=== PATIENT | male | born 1970 ===

== ENCOUNTER 2017-01-20 10:29 | Inpatient (IN) | payer BC ==
[2017-01-20] MEDS ORDERED: NITROGLYCERIN OINT 1 INCH/GM PACKET TOPICAL STA (10:46)
[2017-01-20] MEDS ORDERED: ASPIRIN 81 MG CHEW PO STA (10:46)
[2017-01-20 10:58] LABS: Basophils % (A) 1 %; CH 31.2; CHCM 35.7; Eosinophils # (A) 0.2 k/uL (0-0.7); Eosinophils % (A) 4 %; HCT 40.6 % (39.0-53.0); HDW 2.45; HGB 14.6 gm/dL (13.0-17.5); Luc # (Auto) 0.12; Luc % (Auto) 3; Lymphocytes # (A) 1.6 k/uL (1.0-4.8); Lymphocytes % (A) 36 %; MCH 31.6 pg (25.0-35.0); MCV 87.7 fL (80.0-100.0); Mean Platelet Volume 7.9; Monocytes # (A) 0.4 k/uL (0-1.0); Monocytes % (A) 8 %; Neutrophils # (A) 2.2 k/uL (1.3-7.7); Neutrophils % (A) 48 %; RBC 4.63 m/uL (4.30-5.90); RDW 12.6 % (11.5-15.5); WBC 4.5 k/uL (3.8-10.6)
[2017-01-20 11:06] LABS: ALT 52 U/L (21-72); AST 32 U/L (17-59); Alkaline Phosphatase 62 U/L (38-126); Anion Gap 12 mmol/L; Blood Urea Nitrogen 16 mg/dL (9-20); Calcium 10.1 mg/dL (8.4-10.2); Carbon Dioxide 26 mmol/L (22-30); Chloride 104 mmol/L (98-107); Glucose 148 mg/dL (74-99); Magnesium 1.7 mg/dL (1.6-2.3); Non-African American GFR(MDRD) >60 (>60 ml/min/1.73 sqM); Partial Thromboplastin Time 22.3 sec (22.0-30.0); Potassium 4.5 mmol/L (3.5-5.1); Prothrombin Time 10.2 sec (9.0-12.0); Sodium 142 mmol/L (137-145); Total Bilirubin 0.7 mg/dL (0.2-1.3); Total Protein 7.2 g/dL (6.3-8.2)
--- NOTE | 2017-01-20 11:07 | ED ---
General Adult HPI - General Chief complaint: Chest Pain Stated complaint: chest pain Time Seen by Provider: 01/20/17 10:35 Source: patient, RN notes reviewed Mode of arrival: wheelchair Limitations: no limitations - History of Present Illness Initial comments: This is a 46-year-old male who presents emergency department with past medical history significant for coronary artery disease and 4 stent placements. Patient comes in today because his been having chest pain intermittently for the last 2 weeks. Patient states the pain is a achiness in the center of his chest radiates to his right shoulder. Patient states he also is having some shortness of breath and diaphoresis with these episodes. Patient states his last episode was last evening. His finally made him come to the hospital today even though his chest pain-free today. Patient denies any recent fever chills or cough. Patient denies abdominal pain patient denies nausea vomiting diarrhea. Patient denies any headache patient denies numbness weakness. Patient denies lightheadedness dizziness or near syncopal episode. - Related Data Home Medications Medication Instructions Recorded Confirmed Clopidogrel Bisulfate [Clopidogrel] 75 mg PO DAILY 11/30/15 01/20/17 Losartan Potassium 100 mg PO DAILY 11/30/15 01/20/17 Metoprolol Tartrate [Metoprolol 25 mg PO HS 11/30/15 01/20/17 Tartrate] Aspirin 81 mg PO DAILY 01/20/17 01/20/17 Rosuvastatin Calcium [Rosuvastatin 10 mg PO HS 01/20/17 01/20/17 Calcium] Allergies Allergy/AdvReac Type Severity Reaction Status Date / Time No Known Allergies Allergy Verified 01/20/17 10:34 Review of Systems ROS Statement: Those systems with pertinent positive or pertinent negative responses have been documented in the HPI. ROS Other: All systems not noted in ROS Statement are negative. Past Medical History Past Medical History: Coronary Artery Disease (CAD), Hypertension, Myocardial Infarction ([place]), Syncope Last Myocardial Infarction Date:: 03/08/13 History of Any Multi-Drug Resistant Organisms: None Reported Past Surgical History: Heart Catheterization With Stent Additional Past Surgical History / Comment(s): PCI with 4 stents. Past Anesthesia/Blood Transfusion Reactions: Unable to Obtain Additional Past Anesthesia/Blood Transfusion Reaction / Comment(s): Pt has never had general anesthesia Date of Last Stent Placement:: 03/08/13 Past Psychological History: No Psychological Hx Reported Smoking Status: Never smoker Past Alcohol Use History: Occasional Past Drug Use History: None Reported - Past Family History Father Family Medical History: Cancer Additional Family Medical History / Comment(s): Father of pancreatic cancer at the age of 62 yrs. Mother Family Medical History: Coronary Artery Disease (CAD), Hypertension Additional Family Medical History / Comment(s): Mother has cardiac stents. She is 73 yrs old. General Exam - General Exam Comments Initial Comments: GENERAL: Patient is well-developed and well-nourished. Patient is nontoxic and well- hydrated and is in no acute distress. ENT: Neck is soft and supple. No significant lymphadenopathy is noted. Oropharynx is clear. Moist mucous membranes. Neck has full range of motion without eliciting any pain. EYES: The sclera were anicteric and conjunctiva were pink and moist. Extraocular movements were intact and pupils were equal round and reactive to light. Eyelids were unremarkable. PULMONARY: Unlabored respirations. Good breath sounds bilaterally. No audible rales rhonchi or wheezing was noted. CARDIOVASCULAR: There is a regular rate and rhythm without any murmurs gallops or rubs. ABDOMEN: Soft and nontender with normal bowel sounds. No palpable organomegaly was noted. There is no palpable pulsatile mass. SKIN: Skin is clear with no lesions or rashes and otherwise unremarkable. NEUROLOGIC: Patient is alert and oriented x3. Cranial nerves II through XII are grossly intact. Motor and sensory are also intact. Normal speech, volume and content. Symmetrical smile. MUSCULOSKELETAL: Normal extremities with adequate strength and full range of motion. LYMPHATICS: No significant lymphadenopathy is noted PSYCHIATRIC: Normal psychiatric evaluation. Normal interpersonal interactions appears functionally intact in deals appropriately with others. Limitations: no limitations Course Vital Signs 01/20/17 10:31 Temperature 97 F L Pulse Rate 57 L Respiratory 20 Rate Blood Pressure 176/101 O2 Sat by Pulse 99 Oximetry Medical Decision Making - Medical Decision Making EKG shows sinus bradycardia 55 bpm HI interval is on a 34 QRS is 92 QT interval 4:30 QTC is 411. Patient's EKG shows no ST segment elevation or depression or T wave abnormalities are noted. Patient's troponin came back elevated and without EKG changes a couple patient and non-STEMI. I spoke with Dr. Jeong he agreed to keep the patient and admit the patient. I wrote admitting orders I consult cardiology. Call cardiology Dr. Vo answered he agreed with the current treatment he wanted echo done in the ER. Patient will also be seen by him in the emergency department. - Lab Data Result diagrams: 01/20/17 10:48 01/20/17 10:48 Lab Results 01/20/17 01/20/17 01/20/17 Range/Units 10:48 10:48 10:48 WBC 4.5 (3.8-10.6) k/uL RBC 4.63 (4.30-5.90) m/uL Hgb 14.6 (13.0-17.5) gm/dL Hct 40.6 (39.0-53.0) % MCV 87.7 (80.0-100.0) fL MCH 31.6 (25.0-35.0) pg MCHC 36.0 (31.0-37.0) g/dL RDW 12.6 (11.5-15.5) % Plt Count 177 (150-450) k/uL Neutrophils % 48 % Lymphocytes % 36 % Monocytes % 8 % Eosinophils % 4 % Basophils % 1 % Neutrophils # 2.2 (1.3-7.7) k/uL Lymphocytes # 1.6 (1.0-4.8) k/uL Monocytes # 0.4 (0-1.0) k/uL Eosinophils # 0.2 (0-0.7) k/uL Basophils # 0.0 (0-0.2) k/uL PT (9.0-12.0) sec INR (<1.1) APTT (22.0-30.0) sec Sodium 142 (137-145) mmol/L Potassium 4.5 (3.5-5.1) mmol/L Chloride 104 (98-107) mmol/L Carbon Dioxide 26 (22-30) mmol/L Anion Gap 12 mmol/L BUN 16 (9-20) mg/dL Creatinine 0.90 (0.66-1.25) mg/dL Est GFR (MDRD) Af Amer >60 (>60 ml/min/1.73 sqM) Est GFR (MDRD) Non-Af >60 (>60 ml/min/1.73 sqM) Glucose 148 H (74-99) mg/dL Calcium 10.1 (8.4-10.2) mg/dL Magnesium 1.7 (1.6-2.3) mg/dL Total Bilirubin 0.7 (0.2-1.3) mg/dL AST 32 (17-59) U/L ALT 52 (21-72) U/L Alkaline Phosphatase 62 (38-126) U/L Total Creatine Kinase 65 (55-170) U/L CK-MB (CK-2) 1.0 (0.0-2.4) ng/mL CK-MB (CK-2) Rel Index 1.5 Troponin I 0.137 H* (0.000-0.034) ng/mL Total Protein 7.2 (6.3-8.2) g/dL Albumin 4.6 (3.5-5.0) g/dL 01/20/17 Range/Units 10:48 WBC (3.8-10.6) k/uL RBC (4.30-5.90) m/uL Hgb (13.0-17.5) gm/dL Hct (39.0-53.0) % MCV (80.0-100.0) fL MCH (25.0-35.0) pg MCHC (31.0-37.0) g/dL RDW (11.5-15.5) % Plt Count (150-450) k/uL Neutrophils % % Lymphocytes % % Monocytes % % Eosinophils % % Basophils % % Neutrophils # (1.3-7.7) k/uL Lymphocytes # (1.0-4.8) k/uL Monocytes # (0-1.0) k/uL Eosinophils # (0-0.7) k/uL Basophils # (0-0.2) k/uL PT 10.2 (9.0-12.0) sec INR 1.0 (<1.1) APTT 22.3 (22.0-30.0) sec Sodium (137-145) mmol/L Potassium (3.5-5.1) mmol/L Chloride (98-107) mmol/L Carbon Dioxide (22-30) mmol/L Anion Gap mmol/L BUN (9-20) mg/dL Creatinine (0.66-1.25) mg/dL Est GFR (MDRD) Af Amer (>60 ml/min/1.73 sqM) Est GFR (MDRD) Non-Af (>60 ml/min/1.73 sqM) Glucose (74-99) mg/dL Calcium (8.4-10.2) mg/dL Magnesium (1.6-2.3) mg/dL Total Bilirubin (0.2-1.3) mg/dL AST (17-59) U/L ALT (21-72) U/L Alkaline Phosphatase (38-126) U/L Total Creatine Kinase (55-170) U/L CK-MB (CK-2) (0.0-2.4) ng/mL CK-MB (CK-2) Rel Index Troponin I (0.000-0.034) ng/mL Total Protein (6.3-8.2) g/dL Albumin (3.5-5.0) g/dL Critical Care Time Critical Care Time: Yes Total Critical Care Time: 35 Disposition Clinical Impression: Non-STEMI (non-ST elevated myocardial infarction) Disposition: ADMITTED IP TO THIS HOSP Referrals: None,Stated [Primary Care Provider] - 1-2 days Time of Disposition: 12:07
--- NOTE | 2017-01-20 11:17 | XR ---
EXAMINATION TYPE: XR chest 2V DATE OF EXAM: 01/20/2017 HISTORY: Chest Pain. REFERENCE: Previous study dated 11/30/2015. FINDINGS: The lungs are clear. Pleural spaces are clear. The heart is not enlarged. IMPRESSION: NORMAL CHEST.
[2017-01-20 11:40] LABS: Troponin I 0.137 ng/mL (0.000-0.034)
[2017-01-20] MEDS ORDERED: HEPARIN SODIUM,PORCINE 5,000 UNIT/ML 1 ML VIAL IV ONE (11:54)
[2017-01-20] MEDS ORDERED: HEPARIN SODIUM,PORCINE/D5W PMX 25,000 UNIT in DEXTROSE/WATER 1 500ML.BAG IV SCH (12:00)
[2017-01-20] MEDS ORDERED: NITROGLYCERIN SL TABS 0.4 MG TAB SUBLINGUAL PRN ×3 (12:09→18:06)
[2017-01-20] MEDS ORDERED: ASPIRIN 325 MG TAB PO STA (13:02)
[2017-01-20] MEDS ORDERED: SODIUM CHLORIDE 0.9% 1,000 ML in EMPTY BAG 1 BAG IV ONE (13:02)
[2017-01-20] MEDS ORDERED: ALPRAZolam 0.25 MG TAB PO PRN (13:02)
[2017-01-20] MEDS ORDERED: ATORVASTATIN 80 MG TAB PO STA (13:02)
[2017-01-20] MEDS ORDERED: ALPRAZolam 0.5 MG TAB PO PRN (13:02)
[2017-01-20] MEDS ORDERED: SODIUM CHLORIDE 0.9% 1,000 ML IV ONE ×2 (14:06→16:54)
[2017-01-20] MEDS ORDERED: fentaNYL (PF) 50 MCG/ML 2 ML AMP IVP ONE (14:12)
[2017-01-20] MEDS ORDERED: MIDAZOLAM 2 MG/2 ML VIAL IVP ONE ×2 (14:12→16:54)
[2017-01-20] MEDS ORDERED: CLOPIDOGREL 75 MG TAB PO ONE (14:50)
[2017-01-20] MEDS ORDERED: IOHEXOL 350 MG/ML 100 ML BOTTLE INJ ONE ×2 (14:51→18:00)
[2017-01-20] MEDS ORDERED: amLODIPine 5 MG TAB ONE (15:06)
[2017-01-20] MEDS ORDERED: MIDAZOLAM 2 MG/2 ML VIAL ONE (16:49)
[2017-01-20] MEDS ORDERED: LIDOCAINE 2% INJ 20 MG/ML (20 ML MDV) ONE (17:13)
--- NOTE | 2017-01-20 17:21 | ECHOF ---
Referral Reason:Chest pain MEASUREMENTS -------- HEIGHT: 170.2 cm WEIGHT: 81.7 kg BP: 150/91 RVIDd: 2.8 cm (< 3.3) IVSd: 1.1 cm (0.6 - 1.1) LVIDd: 5.1 cm (3.9 - 5.3) LVPWd: 1.1 cm (0.6 - 1.1) IVSs: 1.7 cm LVIDs: 2.9 cm LVPWs: 1.6 cm LAESV Index (A-L): 16.21 ml/m Ao Diam: 3.1 cm (2.0 - 3.7) AV Cusp: 1.7 cm (1.5 - 2.6) LA Diam: 2.5 cm (2.7 - 3.8) MV EXCURSION: 18.395 mm (> 18.000) MV EF SLOPE: 72 mm/s (70 - 150) EPSS: 1.2 cm MV E Alphonso: 0.80 m/s MV DecT: 243 ms MV A Alphonso: 0.80 m/s MV E/A Ratio: 0.99 RAP: 5.00 mmHg RVSP: 9.35 mmHg FINDINGS -------- Sinus rhythm. This was a technically adequate study. There is borderline concentric left ventricular hypertrophy. Overall left ventricular systolic function is mild-moderately impaired with, an EF between 40 - 45 %. The right ventricle is normal in size and function. Normal LA size by volume 22+/-6 ml/m2. The right atrium is normal in size. Aortic valve is trileaflet and is mildly thickened. The mitral valve leaflets are mildly thickened. There is trace mitral regurgitation. Trace tricuspid regurgitation present. There is no evidence of pulmonary hypertension. The right ventricular systolic pressure, as measured by Doppler, is 9.35mmHg. The pulmonic valve was not well visualized. The aortic root size is normal. Normal inferior vena cava with normal inspiratory collapse consistent with estimated right atrial pressure of 5 mmHg. The pericardium is normal. There is no pericardial effusion. CONCLUSIONS -------- 1. Sinus rhythm. 2. There is no evidence of pulmonary hypertension. 3. The right ventricular systolic pressure, as measured by Doppler, is 9.35mmHg. 4. The pulmonic valve was not well visualized. 5. The aortic root size is normal. 6. There is no pericardial effusion. 7. This was a technically adequate study. 8. There is borderline concentric left ventricular hypertrophy. 9. Overall left ventricular systolic function is mild-moderately impaired with, an EF between 40 - 45 %. 10. Normal LA size by volume 22+/-6 ml/m2. 11. Aortic valve is trileaflet and is mildly thickened. 12. The mitral valve leaflets are mildly thickened. 13. There is trace mitral regurgitation. 14. Trace tricuspid regurgitation present. NEON LIGHT INSTALLER: Morris Gonzalez RDCS
[2017-01-20] MEDS ORDERED: BIVALIRUDIN BOLUS 250 MG/50 ML IV ONE (17:30)
[2017-01-20] MEDS ORDERED: LIDOCAINE 2% INJ 20 MG/ML SQ ONE (17:31)
[2017-01-20] MEDS ORDERED: BIVALIRUDIN 250 MG in SODIUM CHLORIDE 0.9% 50 ML IV ONE (17:32)
[2017-01-20 17:35] LABS: Creatine Kinase MB 0.8 ng/mL (0.0-2.4)
[2017-01-20] MEDS: NITROGLYCERIN 1000MCG/10ML SYRINGE INTRACORON ONE ×2 (17:38→17:52)
[2017-01-20 17:39] LABS: Troponin I 0.139 ng/mL (0.000-0.034)
[2017-01-20] MEDS ORDERED: niCARdipine Syringe (1,000 mcg/10 mL) INTRACORON ONE (17:55)
[2017-01-20] MEDS ORDERED: ATROPINE SULFATE 0.1 MG/ML 10ML SYRINGE IV PRN (18:06)
[2017-01-20] MEDS ORDERED: HYDROmorphone 2 MG/ML 1 ML SYRINGE ONE (18:06)
[2017-01-20] MEDS ORDERED: RX INFO: IV CONTRAST WAS GIVEN 1 EACH MISC MISCELLANE PRN (18:06)
[2017-01-20] MEDS ORDERED: MAG HYDROX/AL HYDROX/SIMETH 30 ML CUP PO PRN (18:06)
[2017-01-20] MEDS ORDERED: HYDROmorphone 2 MG/ML 1 ML SYRINGE IV ONE (18:07)
[2017-01-20] MEDS ORDERED: SODIUM CHLORIDE 0.9% 1,000 ML IV SCH (18:15)
[2017-01-20] MEDS: NITROGLYCERIN OINT 1 INCH/GM PACKET TOPICAL SCH ×2 (19:03→23:33)
[2017-01-20] MEDS ORDERED: HYDROmorphone 1 MG/ML 1 ML SYRINGE IVP STA (20:38)
[2017-01-20] MEDS ORDERED: HYDROcodone/APAP 5-325MG 1 EACH TAB PO PRN (20:39)
[2017-01-20] MEDS ORDERED: ZOLPIDEM 5 MG TAB PO PRN (21:00)
[2017-01-20] MEDS: METOPROLOL TARTRATE 25 MG TAB PO SCH (21:37)
[2017-01-20 22:56] LABS: Troponin I 0.174 ng/mL (0.000-0.034)
[2017-01-21] MEDS: NITROGLYCERIN OINT 1 INCH/GM PACKET TOPICAL SCH ×3 (06:29→16:01)
[2017-01-21 06:38] LABS: Basophils % (A) 0 %; CH 30.4; CHCM 34.6; Eosinophils # (A) 0.1 k/uL (0-0.7); Eosinophils % (A) 2 %; HCT 35.2 % (39.0-53.0); HDW 2.46; HGB 12.4 gm/dL (13.0-17.5); Luc # (Auto) 0.12; Luc % (Auto) 3; Lymphocytes # (A) 1.1 k/uL (1.0-4.8); Lymphocytes % (A) 24 %; MCHC 35.1 g/dL (31.0-37.0); MCV 88.2 fL (80.0-100.0); Mean Platelet Volume 8.1; Monocytes # (A) 0.3 k/uL (0-1.0); Monocytes % (A) 7 %; Neutrophils # (A) 3.1 k/uL (1.3-7.7); Neutrophils % (A) 65 %; RBC 3.99 m/uL (4.30-5.90); RDW 12.2 % (11.5-15.5); WBC 4.7 k/uL (3.8-10.6); WBC (Perox) 4.96
[2017-01-21 06:47] LABS: Anion Gap 8 mmol/L; Blood Urea Nitrogen 12 mg/dL (9-20); Calcium 8.5 mg/dL (8.4-10.2); Carbon Dioxide 26 mmol/L (22-30); Chloride 104 mmol/L (98-107); Cholesterol 151 mg/dL (<200); Glucose 145 mg/dL (74-99); HDL Cholesterol 41 mg/dL (40-60); Non-African American GFR(MDRD) >60 (>60 ml/min/1.73 sqM); Potassium 3.9 mmol/L (3.5-5.1); Sodium 138 mmol/L (137-145); Triglycerides 120 mg/dL (<150)
[2017-01-21] MEDS: CLOPIDOGREL 75 MG TAB PO SCH (08:13)
[2017-01-21] MEDS: ASPIRIN 325 MG TAB PO SCH (08:13)
[2017-01-21] MEDS: LOSARTAN 50 MG TAB PO SCH (08:14)
[2017-01-21] MEDS ORDERED: ASPIRIN 81 MG CHEW PO SCH (09:00)
[2017-01-21] MEDS: EZETIMIBE 10 MG TAB PO SCH (09:53)
--- NOTE | 2017-01-21 09:58 | CONS ---
Mr. Barnes is a 46-year-old gentleman who is seen for cardiac evaluation in the emergency room. This patient has a known history of coronary artery disease with a prior history of stent to the LAD and the right coronary artery. The patient had been doing fairly well since then. For the last 2 days, he has been having intermittent chest pain with minimal activities. Last night he had chest discomfort at rest. The pain was in the substernal area associated with diaphoresis. No significant shortness of breath. Because of the persistent pain, the patient came to the emergency room this morning. The patient's initial troponin is 0.137. The patient has a past history of stent to the LAD and right coronary artery. The patient has a history of hyperlipidemia. Past medical history includes a previous history of stent. Patient was admitted with syncope in November of 2015. Patient's home medications include metoprolol, Plavix, aspirin. Physical examination at present reveals a 46-year-old gentleman who does not appear to be in any acute distress. Blood pressure is 130/80 mmHg. Head, ENT examination is negative. Neck is supple. There is no increase in jugular venous pressure. Both the carotid pulses are felt. There is no bruit. Chest is symmetrical. HEART: The PMI is not felt. First and second heart sounds are normal. There is no evidence of any murmur. Lungs are clinically clear to auscultation and percussion. Abdomen is soft. Liver and spleen are not enlargement. Bowel sounds are heard. EXTREMITIES: Peripheral pulsations are 2+. EKG shows normal sinus rhythm with T wave inversions in lead III. Initial troponin is 0.137. Patient's echocardiogram reveals mid and basal inferior wall and inferoseptal hypokinesia. FINAL IMPRESSION: This patient has come with chest pain. The patient's initial troponin is elevated suggestive of a non-Q wave myocardial infarction. Echocardiogram reveals inferoseptal hypokinesia. I am not exactly sure whether this is old or new. In view of the history suggestive of a non-ST segment elevation myocardial infarction. The patient is advised further evaluation with a cardiac catheterization to rule out any significant progression in the coronary artery disease. MIKE
--- NOTE | 2017-01-21 10:08 | CC ---
Mr. Barnes is a 46-year-old gentleman who came with symptoms of chest pain and ucy-ZS-ojxgyga elevation myocardial infarction. The patient has a prior history of stent to the RCA as well as subtotally occluded LAD. Because of the non-ST segment elevation myocardial infarction, the patient was recommended to have a cardiac catheterization for definitive diagnosis. PROCEDURE: The right groin was prepped and draped in the usual manner and the skin was infiltrated with 2% Xylocaine. The right femoral artery was entered using Seldinger technique and #6 [place] sheath was placed in . Selective coronary angiography was then performed in multiple projections and left ventricular pressures were obtained. The patient tolerated the procedure well. HEMODYNAMICS: Left ventricular end-diastolic pressure is 16 to 20 mmHg prior to angiography. No gradient is noted across the aortic valve. SELECTIVE CORONARY ANGIOGRAPHY: Left main coronary artery is normal and patent. The LAD is a good caliber blood vessel and there is patent stent. The mid LAD right at the origin of the diagonal branch has about 60% stenosis. Circumflex coronary artery is a good caliber blood vessel and gives rise to the obtuse marginal branch. The obtuse marginal branch has about 70% stenosis before its bifurcation into 2 subdivisions. Right coronary artery is a good caliber blood vessel and distal right coronary artery before its bifurcation into the PDA and PLV branch has 90% stenosis. PDA branch has 50% stenosis. RECOMMENDATIONS: The films were reviewed with Dr. Nguyen .We will consider stent to the RCA and possible FFR of the LAD and also evaluate the obtuse marginal branch. [facility]
--- NOTE | 2017-01-21 11:46 | PTCA ---
PERCUTANEOUS CORONARY INTERVENTION DATE OF SERVICE: 01/20/2017 PERFORMING PHYSICIAN: Med Nguyen MD, pulp grinder and blender. PROCEDURE PERFORMED: Successful stenting of the distal right coronary artery using 2.75 x 15 mm Xience JERMAINE with a good angiographic result. INDICATIONS: This is a pleasant 46-year-old gentleman who sees Dr. Caroline Weeks as an outpatient who presented to the hospital with chest discomfort and was diagnosed with unstable angina. He was seen by Dr. Edy Vo who did a heart catheterization on this gentleman and that showed severe de onofre coronary artery disease involving the distal right coronary artery just proximal to prior stent in the RCA. The decision was made toward percutaneous coronary intervention. Dr. Caroline Weeks was out of town. APPROACH: Right common femoral artery. COMPLICATIONS: None. LEVEL OF SEDATION: Moderate with sedation length of 30 minutes. PROCEDURE DESCRIPTION: After diagnostic heart catheterization was performed by Dr. Edy Vo and after reviewing the angiogram, we decided to pursue with an intervention on the RCA. Anticoagulation was initiated using Angio-Max. Subsequently, I took JR4 guide and RCA was engaged. A whisper wire was used to wire the right coronary artery. Subsequently, I did PTCA ballooning using 2.5 x 12 mm balloon which was inflated under 12 atmospheres for 20 seconds after it was positioned under fluoroscopy guidance. Subsequently, I did deploy 2.75 x 15 mm Xience DEC where the stent was positioned under fluoroscopy guidance and deployed under 16 atmospheres for 20 seconds. I was unable to get the stent ( ) whisper wire so I have to sophia wire the right coronary artery using a run-through wire. The procedure was completed without any complication. POSTPROCEDURE MANAGEMENT: 1. Dual antiplatelet therapy. 2. Risk factor modification. 3. Follow up with the patient. MIKE
--- NOTE | 2017-01-21 13:57 | P.PN ---
Subjective Principal diagnosis: Non-STEMI This is a 46-year-old gentleman with known history of coronary artery disease and prior stenting of the LAD as well as right coronary artery. For the past 2 days prior to admission patient had been experiencing chest discomfort, he presented with a non-Q wave myocardial infarction was taken to the cardiac catheterization lab where he underwent angioplasty with stenting of the right coronary artery. Patient was seen and examined this morning, denied any further chest discomfort, breathing overall was stable. Blood pressure 128/70 with a heart rate in the 70s. Hemoglobin 12.4, potassium 3.9, BUN 12, creatinine 0.8. Objective - Vital Signs Vital signs: Vital Signs Temp 97.3 F L 01/21/17 08:00 Pulse 70 01/21/17 11:20 Resp 16 01/21/17 11:20 BP 128/73 01/21/17 11:20 Pulse Ox 95 01/21/17 11:20 Intake & Output 01/20/17 01/21/17 01/21/17 18:59 06:59 18:59 Intake Total 456 500 330 Output Total 600 Balance 456 500 -270 Weight 81.647 kg 83.2 kg Intake: IV 356 Sodium Chloride 0.9% 1, 120 000 ml As IV .[facility] Rx#:[id number] Intake, IV Titration 500 Amount Sodium Chloride 0.9% 1, 500 000 ml @ 100 mls/hr IV . Q10H [facility] Rx#:[id number] Oral 100 330 Output: Urine 600 - Exam PHYSICAL EXAMINATION: HEENT: [Head is atraumatic, normocephalic. Pupils equal, round. Neck is supple. There is no elevated jugular venous pressure.] HEART EXAMINATION: [Heart S1, S2 normal. No murmur or gallop heard.] CHEST EXAMINATION:[ Lungs are clear to auscultation and precussion. No chest wall tenderness is noted on palpation or with deep breathing.] ABDOMEN: [ Soft, nontender. Bowel sounds are heard. No organomegaly noted]. Right groin soft, no evidence of any hematoma. EXTREMITIES:[ 2+ peripheral pulses with no evidence of peripheral edema and no calf tenderness noted]. NEUROLOGIC [patient is awake, alert and oriented -3.] . - Labs CBC & Chem 7: 01/21/17 06:14 01/21/17 06:14 Labs: Abnormal Lab Results - Last 24 Hours (Table) 01/20/17 01/20/17 01/21/17 Range/Units 16:58 22:09 06:14 RBC (4.30-5.90) m/uL Hgb (13.0-17.5) gm/dL Hct (39.0-53.0) % Glucose 145 H (74-99) mg/dL Total Creatine Kinase 54 L 48 L (55-170) U/L Troponin I 0.139 H* 0.174 H* (0.000-0.034) ng/mL 01/21/17 Range/Units 06:14 RBC 3.99 L (4.30-5.90) m/uL Hgb 12.4 L (13.0-17.5) gm/dL Hct 35.2 L (39.0-53.0) % Glucose (74-99) mg/dL Total Creatine Kinase (55-170) U/L Troponin I (0.000-0.034) ng/mL Assessment and Plan (1) S/P right coronary artery (RCA) stent placement Status: Acute (2) HTN (hypertension) Status: Acute (3) Non-STEMI (non-ST elevated myocardial infarction) Status: Acute (4) CAD (coronary artery disease) Status: Acute Plan: From cardiology's perspective, we will continue current medications. Have the patient ambulating as tolerated today and plan for possible discharge home in 24 hours if stable. DNP note has been reviewed, I agree with a documented findings and plan of care. Patient was seen and examined.
[2017-01-21] MEDS ORDERED: ATORVASTATIN 20 MG TAB PO SCH (21:00)
[2017-01-21] MEDS: METOPROLOL TARTRATE 25 MG TAB PO SCH (21:11)
[2017-01-22] MEDS: NITROGLYCERIN OINT 1 INCH/GM PACKET TOPICAL SCH ×3 (02:11→09:48)
[2017-01-22 09:10] VITALS: RESP 16; TEMP 97.9
[2017-01-22] MEDS: EZETIMIBE 10 MG TAB PO SCH (09:10)
[2017-01-22] MEDS: LOSARTAN 50 MG TAB PO SCH (09:10)
[2017-01-22] MEDS: ASPIRIN 325 MG TAB PO SCH (09:10)
[2017-01-22] MEDS: CLOPIDOGREL 75 MG TAB PO SCH (09:10)
[2017-01-22] MEDS ORDERED: ASPIRIN 81 MG CHEW PO SCH (09:57)
[2017-01-22 11:14] VITALS: BP 118/75; PULSE 67
--- NOTE | 2017-01-22 12:57 | HP ---
DATE OF SERVICE: 01/20/2017 CHIEF COMPLAINT: Chest pain. HISTORY OF PRESENT ILLNESS: This 46-year-old gentleman with a past medical history of multiple medical problems, including CAD, history of myocardial infarction, syncope, history of renal failure, dehydration, being followed by Dr. Edwards in the outpatient setting, was complaining of chest pain on and off for the last 2 weeks. Pain was felt in the anterior part of the chest, more like an achiness, radiating to the right shoulder, associated with shortness of breath and some palpitations. The patient came to [facility] and was admitted for further evaluation and treatment. Troponin was found to be elevated at 0.175, indicating acute ffl-OE-uluijkede myocardial infarction. The patient underwent cardiac catheterization and RCA stenting at this time. There is no history of any fever, rigor, chills. No history of headache, loss of consciousness, seizures. PAST MEDICAL HISTORY: 1. History of CAD. 2. History of myocardial infarction. 3. History of renal failure. 4. CAD, stent. Medications prior to admission include: 1. Crestor 10 mg at bedtime. 2. Metoprolol 25 mg at bedtime. 3. Losartan 100 mg daily. 4. Plavix 75 mg p.o. daily. 5. Aspirin 81 mg. ALLERGIES: NONE. FAMILY HISTORY: History of cancer in the family. SOCIAL HISTORY: No history of smoking. Occasional alcohol intake. REVIEW OF SYSTEMS: ENT: No diminished hearing. No diminished vision. CARDIOVASCULAR SYSTEM: As mentioned earlier. RESPIRATORY SYSTEM: As mentioned earlier. GI: No nausea, vomiting. : No dysuria, retention. NERVOUS SYSTEM: No numbness, weakness. ALLERGY/IMMUNOLOGY: No asthma, hayfever. MUSCULOSKELETAL: As mentioned earlier. HEMATOLOGY/ONCOLOGY: No history of anemia. ENDOCRINE: No history of diabetes or hypothyroidism. CONSTITUTIONAL: As mentioned earlier. DERMATOLOGIC: Negative. RHEUMATOLOGIC: Negative. PSYCHIATRY: As mentioned earlier. PHYSICAL EXAMINATION: Patient is alert and oriented x3. Pulse is 64, blood pressure 114/65, respiration 20, temperature normal, pulse ox 94% on room air. HEENT: Conjunctivae normal. Oral mucosa moist. NECK: No jugular venous congestion. No carotid bruit. No lymph node enlargement. CARDIAC: S1, S2 muffled. No S3. No S4. RESPIRATORY: Breath sounds diminished at the bases. A few scattered rhonchi. No crackles. ABDOMEN: Soft, non-tender. No mass palpable. LEGS: No edema. No swelling. NERVOUS SYSTEM: Higher functions as mentioned earlier. Moves all 4 limbs. No focal motor or sensory deficit. LYMPHATICS: No lymph node palpable in neck, axillae or groin. SKIN: No ulcer, rash or bleeding. LABS: Troponins are noted. Glucose 148. ASSESSMENT: 1. Acute vxb-PF-gqyvvgclf myocardial infarction, status post cardiac catheterization and stenting of the right coronary artery. 2. History of coronary artery disease. 3. History of hypertension. 4. History of syncope. 5. History of renal failure. 6. History of coronary artery disease, stent. 7. Family history of coronary artery disease. RECOMMENDATIONS AND DISCUSSION: In this 46-year-old gentleman who presented with multiple complex medical issues, we will monitor the patient closely, continue the current medications, continue with symptomatic treatment. Otherwise , at this time I recommend continuing the antiplatelet agents. Continue with post-stent protocol. Prognosis guarded because of multiple complex medical issues. Further recommendations to follow. MTDD
--- NOTE | 2017-01-23 13:10 | PN ---
DATE OF SERVICE: 01/21/2017 This 46-year-old gentleman admitted with acute rws-VO-hpoknfhiv myocardial infarction. Had cardiac catheterization with stenting of the RCA. No chest pain or palpitation. No fever. On exam, alert and oriented x3. Pulse 70, blood pressure 128/73, respirations 16 , temperature normal, pulse ox 94% on room air. HEENT: Conjunctivae normal. NECK: No jugular venous distention. CARDIOVASCULAR: S1 and S2 muffled. RESPIRATORY: Breath sounds diminished at the bases. No rhonchi, no crackles. ABDOMEN: Soft, nontender. LEGS: No edema, no swelling. NERVOUS SYSTEM; No focal deficits. LABS: Hemoglobin 12.4. Troponin noted. ASSESSMENT: 1. Acute qep-KC-vxxlaso elevation myocardial infarction, status post cardiac catheterization and right coronary artery stenting. 2. History of coronary artery disease. 3. History of myocardial infarction. RECOMMENDATIONS AND DISCUSSION: Recommend to continue current medications, continue symptomatic treatment. Otherwise at this time, recommend increase ambulation. Otherwise, continue with antiplatelets agents. Further recommendations to follow. Closely follow with Cardiology. MIKE
--- NOTE | 2017-01-23 16:19 | PN ---
Mr. Barnes is a 46 year male with a history of coronary artery disease who presented with non-ST elevation [place], underwent stenting of the right coronary artery. He is doing well this morning. He is ambulating without difficulty, denying any chest pain. Denies any dizziness or palpitations. He continues to be at this time on aspirin once a day, Lipitor 20 mg daily, Plavix 75 mg daily, Zetia 10 mg daily, Losartan 100 mg daily, Metoprolol tartrate 25 mg daily , Nitropaste. Physical examination: Blood pressure 129/72 with a heart rate in the 80s. Lungs clear. Heart regular rate and rhythm, S1, S2, no S3, no rub. Abdomen soft. Nontender. Extremities no edema. IMPRESSION: 1. Status post non-ST elevation myocardial and stenting of the right coronary artery. 2. History of hypertension. 3. Hyperlipidemia. RECOMMENDATIONS: The patient will be discharged home today and followed as an outpatient by Dr. Caroline Weeks. MIKE
--- NOTE | 2017-01-24 08:04 | DS ---
FINAL DIAGNOSES: 1. Acute non-ST elevation myocardial infarction status post cardiac catheterization, stenting of the RCA. 2. History of coronary artery disease. 3. History of hypertension. DISCHARGE DISPOSITION: The patient is being discharged in stable condition with guarded prognosis. HISTORY OF PRESENT ILLNESS: This 46 year old gentleman with a past medical history of multiple medical problems admitted with acute non-ST elevation myocardial infarction. The patient was treated medically. The patient also underwent cardiac catheterization and stenting as mentioned. Cardiology saw the patient. Vital signs stable. Cardiovascular S1, S2. Breath sounds diminished at the bases. No rhonchi. No crackles. Abdomen soft. Nervous system: No focal deficits. DISCHARGE MEDICATION AND ADVICE: 1. Diet is cardiac. 2. Activity limited until followup. 3. Followup with primary care physician in one to two days. 4. followup with cardiology as recommended. 5. Medications are: Ecotrin 81 mg po daily. 6. Plavix 75 mg po daily. 7. Pepcid 20 mg po b.i.d. 8. Losartan 100 mg po daily. 9. Metoprolol 25 mg q.h.s. 10. Crestor 10 mg q.h.s. MTDD
== END 2017-01-22 14:07 | disposition home or self-care (01) | DRG 247 ==
LOC: EC 10:29 → 6SEL 12:09
PROVIDERS: ADMIT Hospitalist; ATTEND Hospitalist
PROC: 4A023N7 Measurement of Cardiac Sampling and Pressure, Left Heart, Percutaneous Approach (ICD-10-PCS; 2017-01-20)
PROC: B2111ZZ Fluoroscopy of Multiple Coronary Arteries using Low Osmolar Contrast (ICD-10-PCS; 2017-01-20)
PROC: B2151ZZ Fluoroscopy of Left Heart using Low Osmolar Contrast (ICD-10-PCS; 2017-01-20)
PROC: 027034Z Dilation of Coronary Artery, One Artery with Drug-eluting Intraluminal Device, Percutaneous Approach (ICD-10-PCS; principal; 2017-01-20 14:00)
DX: I21.4 Non-ST elevation (NSTEMI) myocardial infarction (principal); I10 Essential (primary) hypertension; I25.2 Old myocardial infarction; R00.2 Palpitations; E78.5 Hyperlipidemia, unspecified; R00.1 Bradycardia, unspecified; I25.110 Atherosclerotic heart disease of native coronary artery with unstable angina pectoris; Z79.02 Long term (current) use of antithrombotics/antiplatelets; Z79.82 Long term (current) use of aspirin; Z79.899 Other long term (current) drug therapy; Z95.5 Presence of coronary angioplasty implant and graft; Z82.49 Family history of ischemic heart disease and other diseases of the circulatory system; Z80.0 Family history of malignant neoplasm of digestive organs; Z86.79 Personal history of other diseases of the circulatory system; Z87.448 Personal history of other diseases of urinary system
CPT/HCPCS: 36415; 71020; 80048; 80053; 80061; 82550; 82553; 83735; 84484; 85025; 85610; 85730; 93005; 93306; 93458; 94760; 96365; 96376; 99291

== ENCOUNTER 2018-01-17 20:35 | Emergency (ER) | payer BC ==
[2018-01-17 20:43] VITALS: RESP 16
--- NOTE | 2018-01-17 21:34 | XR ---
EXAMINATION TYPE: XR elbow complete RT DATE OF EXAM: 01/17/2018 COMPARISON: NONE HISTORY: Forearm laceration TECHNIQUE: 3 views FINDINGS: I see no fracture nor dislocation. Joint spaces are normal. There is no sign of a joint eff usion. I see no sign of a foreign body. IMPRESSION: Negative right elbow exam.
[2018-01-17] MEDS ORDERED: DIPH,PERTUS(ACELL)TETVAC-LF 0.5 ML VIAL IM ONE (21:35)
[2018-01-17] MEDS ORDERED: LIDOCAINE 1% INJ 10MG/ML (20 ML MDV) SQ ONE (21:49)
--- NOTE | 2018-01-17 22:08 | ED ---
General Adult HPI - General Chief complaint: Wound/Laceration Stated complaint: Arm Lac Time Seen by Provider: 01/17/18 21:04 Source: patient, RN notes reviewed Mode of arrival: ambulatory Limitations: no limitations - History of Present Illness Initial comments: 47-year-old male presents to the emergency department for a chief complaint of puncture wound to right elbow 1 hour. Patient states he was walking on his boat when he slipped and fell backwards and hit his right arm against a boat cleat. Patient states the edge of the boat cleat pierced his skin. Patient states the elbow is somewhat tender and painful to move. Patient denies hitting his head or sustaining any other injuries. Patient denies any back pain or neck pain. No loss of consciousness.Patient has no other complaints at this time including shortness of breath, chest pain, abdominal pain, nausea or vomiting, headache, or visual changes. - Related Data Home Medications Medication Instructions Recorded Confirmed Clopidogrel Bisulfate [Clopidogrel] 75 mg PO DAILY 11/30/15 01/20/17 Losartan Potassium 100 mg PO DAILY 11/30/15 01/20/17 Metoprolol Tartrate 25 mg PO HS 11/30/15 01/20/17 Aspirin 81 mg PO DAILY 01/20/17 01/20/17 Rosuvastatin Calcium 10 mg PO HS 01/20/17 01/20/17 Previous Rx's Medication Instructions Recorded Famotidine [Pepcid] 20 mg PO BID #60 tablet 01/22/17 Allergies Allergy/AdvReac Type Severity Reaction Status Date / Time No Known Allergies Allergy Verified 01/17/18 20:43 Review of Systems ROS Statement: Those systems with pertinent positive or pertinent negative responses have been documented in the HPI. ROS Other: All systems not noted in ROS Statement are negative. Past Medical History Past Medical History: Coronary Artery Disease (CAD), Hypertension, Myocardial Infarction ([place]), Syncope Additional Past Medical History / Comment(s): [place] 03/08/13, syncope from acute renal failure associated with dehydration. Last Myocardial Infarction Date:: 03/08/13 History of Any Multi-Drug Resistant Organisms: None Reported Past Surgical History: Heart Catheterization With Stent Additional Past Surgical History / Comment(s): PCI with 4 stent03/08/13. Past Anesthesia/Blood Transfusion Reactions: Unable to Obtain Additional Past Anesthesia/Blood Transfusion Reaction / Comment(s): Pt has never had general anesthesia Date of Last Stent Placement:: 03/08/13 Past Psychological History: No Psychological Hx Reported Smoking Status: Never smoker - Past Family History Father Family Medical History: Cancer Additional Family Medical History / Comment(s): Father of pancreatic cancer at the age of 62 yrs. Mother Family Medical History: Coronary Artery Disease (CAD), Hypertension Additional Family Medical History / Comment(s): Mother has cardiac stents. She is 75 yrs old. General Exam Limitations: no limitations General appearance: alert, in no apparent distress Head exam: Present: atraumatic, normocephalic, normal inspection Eye exam: Present: normal appearance ENT exam: Present: normal exam, mucous membranes moist Neck exam: Present: normal inspection, full ROM. Absent: tenderness, meningismus, lymphadenopathy Respiratory exam: Present: normal lung sounds bilaterally. Absent: respiratory distress, wheezes, rales, rhonchi, stridor Cardiovascular Exam: Present: regular rate, normal rhythm, normal heart sounds. Absent: bradycardia, tachycardia, irregular rhythm Extremities exam: Present: tenderness (Tenderness to the medial epicondyles of the right elbow. Tenderness to the laceration area. No tenderness elsewhere in the right forearm wrist and fingers or shoulder.), normal capillary refill ( Refill less than 2 seconds and radial pulse 2+ in the right upper extremity.), joint swelling (Patient has mild swelling noted around the right elbow. No ecchymosis noted.), other (Sensation intact in the right upper extremity.). Absent: full ROM (Patient has full extension of the right elbow and about 110 of flexion. Full range of motion of the right wrist and digits in the right hand.) Course Vital Signs 01/17/18 20:41 Temperature 98.3 F Pulse Rate 78 Respiratory 16 Rate Blood Pressure 111/70 O2 Sat by Pulse 99 Oximetry Procedures - Procedures Initial comment: Body area: Medial prox right forearm Laceration length: 2 cm Foreign bodies: no foreign bodies Tendon involvement: none Nerve involvement: none Vascular damage: no Anesthesia: local infiltration Local anesthetic: 2mL 1% lidocaine Preparation: Patient was prepped and draped in the usual sterile fashion. Irrigation solution: saline Irrigation method:sterile water jet lavage Skin closure:5-0 Ethilon using sterile technique Number of sutures: 2 Technique: interupted Dressing: antibiotic ointment/ gauze Patient tolerance: Patient tolerated the procedure well with no immediate complications. Medical Decision Making - Medical Decision Making 47-year-old male presents to the emergency determine for chief complaint of puncture to the right arm from a boat cleat. No other injuries were sustained. No trauma to the head neck or back. Patient states elbow is somewhat painful to move. Patient does have mild swelling around the right elbow. Neurovascular intact. Tetanus given in the emergency department. X-ray of the right elbow shows no acute fracture or dislocation. No foreign bodies. There is a 2 cm puncture wound noted to the right medial forearm. Subcutaneous tissue is exposed and extruding from the wound. Wound was approximated with 2 sutures. It was tacked to still allow for drainage but to help keep the tissue in place. Patient was educated on signs of infection or return if these occur. He will return if he has any other worsening symptoms. He will rest ice and elevate the right elbow. He will follow up with primary care in 1-2 days. Disposition Clinical Impression: Laceration Disposition: HOME SELF-CARE Condition: Good Instructions: Care For Your Stitches (ED), Puncture Wound (ED) Additional Instructions: Please take Motrin and Tylenol for pain. Please rest ice and elevate the right elbow. Please return to the emergency department if you have any worsening symptoms or signs of infection such as spreading redness, streaking redness, drainage, or fever. Follow-up with primary care in 1-2 days. Return in 7-10 days to have sutures removed. Is patient prescribed a controlled substance at d/c from ED?: No Referrals: Shayan Vázquez MD [STAFF PHYSICIAN] - 1-2 days Time of Disposition: 22:07
[2018-01-17 22:14] VITALS: BP 139/80; PULSE 82; TEMP 97
== END 2018-01-17 22:14 | disposition home or self-care (01) ==
LOC: EC 20:35
DX: S51.811A Laceration without foreign body of right forearm, initial encounter (principal); I25.10 Atherosclerotic heart disease of native coronary artery without angina pectoris; I10 Essential (primary) hypertension; I25.2 Old myocardial infarction; Z95.5 Presence of coronary angioplasty implant and graft; Z79.02 Long term (current) use of antithrombotics/antiplatelets; Z79.82 Long term (current) use of aspirin; Z79.899 Other long term (current) drug therapy; Z23 Encounter for immunization; W01.198A Fall on same level from slipping, tripping and stumbling with subsequent striking against other object, initial encounter; Y93.01 Activity, walking, marching and hiking; Y92.814 Boat as the place of occurrence of the external cause
CPT/HCPCS: 99283; 12001; 90471; 73080; 90715; J2001